=== PATIENT | male | born 1975 | race Caucasian/White ===

== ENCOUNTER 2018-06-11 14:34 | Emergency (ER) | payer BC ==
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
[2018-06-11 14:42] VITALS: TEMP 98.6; BMI 24.3
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
[2018-06-11] MEDS ORDERED: METOPROLOL TARTRATE 5 MG/5 ML VIAL IVPUSH ONE ×2 (16:07→18:37)
[2018-06-11] MEDS ORDERED: SODIUM CHLORIDE 500 ML IV STA (16:08)
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
[2018-06-11] MEDS ORDERED: METOPROLOL TARTRATE 5 MG/5 ML VIAL ONE ×2 (16:18→18:48)
[2018-06-11 16:25] VITALS: PULSE 91
[2018-06-11 16:25] LABS: BASO % 1.1 % (0-2.0); EOS % 2.9 % (0-4.5); HEMATOCRIT 43.5 % (35.4-49); HEMOGLOBIN 15.1 GM/dL (11.7-16.9); LYMPH % 31.4 % (8-40); MCH 34.6 pg (25.7-33.7); MCHC 34.8 g/dl (32.0-35.9); MEAN CELL VOLUME 99.4 fl (80-96); MEAN PLT VOLUME 9.9 fl (7.5-11.1); MONO % 9.4 % (3.8-10.2); NEUT % 55.2 % (42.8-82.8); PLATELET COUNT 235 K/MM3 (134-434); RBC 4.37 M/mm3 (4.00-5.60); RDW 13.4 % (11.9-15.9); WHITE BLOOD COUNT 7.6 K/mm3 (4.0-10.0)
[2018-06-11 16:34] LABS: URINE APPEARANCE CLEAR; URINE BILIRUBIN NEGATIVE (<2.0 mg/dL); URINE COLOR LTYELLOW; URINE GLUCOSE (UA) NEGATIVE (NEGATIVE); URINE KETONE NEGATIVE (NEGATIVE); URINE LEUK ESTERASE NEGATIVE (NEGATIVE); URINE NITRITE NEGATIVE (NEGATIVE); URINE PROTEIN NEGATIVE (NEGATIVE); URINE UROBILINOGEN NEGATIVE mg/dL (0.2-1.0)
[2018-06-11 16:59] LABS: ALBUMIN 3.6 g/dl (3.4-5.0); ALK PHOS 62 U/L (45-117); ANION GAP 7 MMOL/L (8-16); BILIRUBIN,TOTAL 0.3 mg/dL (0.2-1); BLOOD UREA NITROGEN 22 mg/dL (7-18); CALCIUM 8.7 mg/dL (8.5-10.1); CHLORIDE 109 mmol/L (98-107); CO2 26 mmol/L (21-32); CREATININE 1.1 mg/dL (0.55-1.3); GLUCOSE,RANDOM 95 mg/dL (74-106); POTASSIUM 4.6 mmol/L (3.5-5.1); SGOT/AST 17 U/L (15-37); SGPT/ALT 28 U/L (13-61); SODIUM 142 mmol/L (136-145); TOT PROT 6.7 g/dl (6.4-8.2)
[2018-06-11] MEDS ORDERED: METOPROLOL TARTRATE 50 MG TABLET (FP) PO ONE (18:37)
[2018-06-11] MEDS ORDERED: METOPROLOL TARTRATE 50 MG TABLET (FP) ONE (18:48)
[2018-06-11 18:53] VITALS: BP 117/83
--- NOTE | 2018-06-12 11:58 | EKG ---
Test Reason : Blood Pressure : / mmHG Vent. Rate : 111 BPM Atrial Rate : 150 BPM P-R Int : 000 ms QRS Dur : 102 ms QT Int : 306 ms P-R-T Axes : 000 051 069 degrees QTc Int : 416 ms ATRIAL FIBRILLATION WITH RAPID VENTRICULAR RESPONSE WITH PREMATURE VENTRICULAR OR ABERRANTLY CONDUCTED COMPLEXES ABNORMAL ECG WHEN COMPARED WITH ECG OF 03-MAY-2016 14:58, ATRIAL FIBRILLATION HAS REPLACED SINUS RHYTHM VENT. RATE HAS INCREASED BY 39 BPM Confirmed by EVERARDO MCDONALD MD ([id number]) on 06/12/2018 11:58:06 AM Referred By: Confirmed By:EVERARDO MCDONALD MD
== END 2018-06-11 19:15 | disposition left against medical advice (07) ==
LOC: JER 14:34
PROC: 3E033GC Introduction of Other Therapeutic Substance into Peripheral Vein, Percutaneous Approach (ICD-10-PCS; principal; 2018-06-11)
PROC: 3E0337Z Introduction of Electrolytic and Water Balance Substance into Peripheral Vein, Percutaneous Approach (ICD-10-PCS; 2018-06-11)
DX: I48.91 Unspecified atrial fibrillation (principal); Z86.718 Personal history of other venous thrombosis and embolism; Y99.0 Civilian activity done for income or pay; X58.XXXA Exposure to other specified factors, initial encounter; Y93.89 Activity, other specified; Y92.89 Other specified places as the place of occurrence of the external cause
CPT/HCPCS: 36415; 71046-TC-FY; 73110-TC-RT-FY; 80053; 81003; 82550; 82553; 84484; 85025; 93005; 93010; 99284-25

== ENCOUNTER 2018-07-03 10:40 | Day surgery (SDC) | payer OTHER ==
[2018-07-03 09:32] VITALS: BMI 24.5
[2018-07-03] MEDS ORDERED: LIDOCAINE VISCOUS 2% ORAL/TOP 20 ML UNIT-DOSE CUP PO ONE (12:22)
[2018-07-03 13:00] VITALS: TEMP 97.2
--- NOTE | 2018-07-03 13:08 | ECHO ---
Name: RIN, STEVE Exam:Transesophageal Echocardiogram Study Date: 07/03/2018 12:14 PM Age: 42 yrs Reason For Study: A-Fib Height: 76 in Weight: 202 lb BSA: 2.2 m2 Procedure: A 2D transesophageal echocardiogram with Doppler and color flow Doppler was performed. Informed conse nt for Transesophageal Echocardiogram, and use of a contrast agent as needed, was obtained prior to the proc edure. The patient was brought to the endoscopy suite in a fasting state. An intravenous line was placed. A topical anesthetic agent was used for oropharangeal anesthesia. A bite block was inserted. IV concious sedati on was administered using propafol. A multifrequency, multiplane transesopheageal echocardiographic endoscop e was inserted and manipulated in the standard fashion to achieve multiplane views. The transesophageal pro be was passed without difficulty. The usual views were obtained; basal, mid-esophageal, transgastric and aor tic views. The patient's vital signs, including blood pressure, heart rate, pulse oximetry and cardiac rh ythm were monitored throughout the procedure and remained stable. The patient tolerated the procedure well with out evidence of orophangeal or esophageal trauma. There were no complications. The patient was in atrial fibrillation with rapid ventricular response during the exam with a heart rate exceeding 100 bpm. Left Ventricle The left ventricular size, thickness and function are normal. The left ventricular ejection fraction is normal. Ejection Fraction = 55-60%. The left ventricular wall motion is normal. Right Ventricle The right ventricular systolic function is normal. Atria No thrombus is detected in the left atrial appendage. No left atrial mass or thrombus visualized. The re is no Doppler evidence for an atrial septal defect. Mitral Valve The mitral valve leaflets appear normal. There is no evidence of stenosis, fluttering, or prolapse. T here is no mitral regurgitation noted. Tricuspid Valve The tricuspid valve is normal. Aortic Valve The aortic valve is trileaflet. Great Vessels Normal aortic arch, descending and ascending aorta. Interpretation Summary The left ventricular size, thickness and function are normal The right ventricular systolic function is normal. No thrombus is detected in the left atrial appendage. No left atrial mass or thrombus visualized. MD Sully Ramachandran 07/03/2018 01:08 PM
--- NOTE | 2018-07-03 13:13 | PROC ---
Cardioversion Indication: Atrial fibrillation Risks and Benefits Explained: Yes Consent on Chart: Yes BRANDON done prior to Cardioversion: Yes BRANDON findings: No intracardiac thrombus Patient anticoagulated: Yes - Procedure Anesthesiologist present: Yes Medication given: propofol Joules delivered: 120 x1 Rhythm post cardioversion: sinus Remarks: Patient tolerated procedure well, no complications.
[2018-07-03 13:44] VITALS: BP 101/63; PULSE 61
--- NOTE | 2018-07-03 16:42 | EKG ---
Test Reason : Blood Pressure : / mmHG Vent. Rate : 058 BPM Atrial Rate : 058 BPM P-R Int : 144 ms QRS Dur : 102 ms QT Int : 434 ms P-R-T Axes : 045 030 057 degrees QTc Int : 426 ms SINUS BRADYCARDIA POSSIBLE LEFT ATRIAL ENLARGEMENT BORDERLINE ECG WHEN COMPARED WITH ECG OF 11-JUN-2018 15:01, SINUS RHYTHM HAS REPLACED ATRIAL FIBRILLATION VENT. RATE HAS DECREASED BY 53 BPM Confirmed by TAMARA ELDRIDGE, EVERARDO ([id number]) on 07/03/2018 4:41:44 PM Referred By: Confirmed By:EVERARDO MCDONALD MD
== END 2018-07-03 13:42 | disposition home or self-care (01) ==
LOC: JOR 10:40 → JASU-ENDO 10:40
PROVIDERS: ATTEND Internal Medicine
PROC: B246ZZ4 Ultrasonography of Right and Left Heart, Transesophageal (ICD-10-PCS; 2018-07-03)
PROC: 5A2204Z Restoration of Cardiac Rhythm, Single (ICD-10-PCS; principal; 2018-07-03 11:30)
DX: I48.91 Unspecified atrial fibrillation (principal)
CPT/HCPCS: 93005; 93010; 93312; 93325